=== PATIENT | male | born 2005 | race African-American/Black ===

== ENCOUNTER 2024-12-04 08:50 | Emergency (ER) | payer MEDICAID ==
[~2024-12-04] VITALS: Ht 185.4 cm; Wt 105.2 kg
[2024-12-04 09:01] VITALS: BP 158/89; PULSE 92; O2SAT 97
--- NOTE | 2024-12-04 09:06 | Physician Documentation ---
History of Present Illness ~ Chief Complaint: Hand pain Stated Complaint: R HAND INJURY Time Seen by MD: 09:04 [facility] 19-year-old male presents to the emergency department reporting that he punched something with his right hand about 30 minutes prior to arrival. He does note a history of a fracture of the thumb on this hand when he was 12 years old. Sensation intact to fingers. Obvious deformity dorsum right hand at base of 5th digit. He denies any other injuries. Medication Reconciliation Allergies: Coded Allergies: No Known Allergies (Unverified , 12/04/24) Review of Systems ROS As stated above in the HPI, otherwise all systems are reviewed and negative. Physical Exam Vital Signs: Temperature: 98.6, Source: Temporal, Heart Rate: 92, Respiratory Rate: 16, BP: 158/89, Pulse Oximetry: 97, Weight: 105.180 Oxygen Flow Rate: 0 Physical Exam General: Alert, no apparent distress. Neck: Full range of motion. Respiratory: Lungs clear, no respiratory distress. Chest: No accessory muscle use. Cardiovascular: Regular rate and rhythm, no murmurs. Gastrointestinal: Soft, nontender, nondistended. Bowels sounds present. Extremities: Reduced/painful ROM right hand with obvious deformity dorsum of hand at base of finger #5. Sensation intact to tips of fingers. Strong right radial pulse. Neurologic: Oriented x4. Psychiatric: Normal mood and affect. Skin: Normal color, warm and dry. No edema, no ecchymosis. Procedures Procedures 0925: Reduction right fifth metacarpal accomplished with forward traction on distal finger and downward/forward pressure on medial aspect. Patient tolerated well. Post-reduction film obtained showing good placement of right fifth metacarpal. Placed in velcro wrist splint. Progress Progress Note Plan of care coordinated in conjunction with JOSE Dotson and he was present for closed reduction. 0950: Post reduction film shows good alignment of right fifth metacarpal. However, an avulsion fracture is present on both pre-reduction and post- reduction films. Patient was placed in velcro wrist splint and the importance of seeing an orthopedist was stressed to him. He is to leave the velcro wrist brace in place at all times except for showering/washing hands. Results/Orders Results/Orders Orders - MALOU TELLES NP Hand, Complete (3vw Min) (12/04/24 09:05) Wrist, Complete (3vw Min) (12/04/24 09:05) Hand,Limited (Ap/Lat) (12/04/24 09:32) Ortho Orders (12/04/24 ) Completed Orders - MALOU TELLES NP Hand, Complete (3vw Min) (12/04/24 09:05) Wrist, Complete (3vw Min) (12/04/24 09:05) Hydrocodone/Apap 5/325mg Tab ([place] 5/32 (12/04/24 09:15) * Ice Extremity* (12/04/24 09:11) Hand,Limited (Ap/Lat) (12/04/24 09:32) Medications Received in ER Medications (Trade) Dose Ordered Sig/Farrukh Route PRN Reason Start Time Stop Time Status Last Admin Dose Admin ([place] 5/325mg tablet) 1 tab ONCE ONCE PO 12/04/24 09:15 12/04/24 09:16 DC 12/04/24 09:17 1 TAB Vital Signs 12/04/24 12/04/24 12/04/24 09:01 09:17 09:58 Temp 98.6 98.6 Pulse 92 Resp 16 15 B/P (MAP) 158/89 Pulse Ox 97 O2 Flow Rate 0 EKG/XRAY/CT/US/VASC/MRI Bone/Soft Tissue X-Ray (Spine) : Additional Comment DIAGNOSTIC RADIOLOGY Patient: MAYUR JOSE Medical Record: [id number] [facility] : 2005, Age: 19 Sex: Male Location: ER Patient Status: REG ER Service Date/Time: 12/04/24904 Ordering Physician: MALOU TELLES NP Exam: WRIST, COMPLETE (3VW MIN) Indication: WRIST PAIN Technique: 3 views right wrist, 3 views right hand Comparison: None FINDINGS/IMPRESSION: Fracture /dislocation of the carpal metacarpal bones by 11 mm on the lateral view. There is fracture fragment of the base of the metacarpal bone, likely at the base of the 5th metacarpal bone. Recommend CT of the right wrist /right hand to further characterize and evaluate which metacarpal bone is dislocated, felt to represent the 5th metacarpal bone dislocation of the carpometacarpal joints. Soft tissue edema along the ulnar aspect of the right hand. There also may be dislocation of the articulation between the carpal and 4th metacarpal bones as there is widening between the 3rd and 4th metacarpal bases. Recommend CT right wrist/ right hand to evaluate Electronically Signed by:CHER RIVERA MD Date & Time: 12/04/24957 Dictated by: CHER RIVERA MD Dictation date and time: 12/04/24924 Primary Care Provider: NO PRIMARY CARE PROVIDER cc: MALOU TELLES NP ~ Bone/Soft Tissue X-Ray (Ext.) : Additional Comment DIAGNOSTIC RADIOLOGY Patient: MAYUR JOSE Medical Record: [id number] [facility] : 2005, Age: 19 Sex: Male Location: ER Patient Status: [facility] ER Service Date/Time: 12/04/24931 Ordering Physician: MALOU TELLES NP Exam: HAND,LIMITED (AP/LAT) Indication: post reduction film Technique: 2 views right hand Comparison: Radiographs of the right wrist, right hand from today FINDINGS/IMPRESSION: Interval reduction of the dislocation of the carpal metacarpal joints with significantly improved alignment. 4 mm ossific fragment along the dorsal aspect of the carpal bones/metacarpal bases mass seen on the lateral view consistent with fracture fragment from unknown donor site, possibly the 5th metacarpal base. Electronically Signed by:CHER RIVERA MD Date & Time: 12/04/24 1012 Dictated by: CHER RIVERA MD Dictation date and time: 12/04/24 0948 Primary Care Provider: NO PRIMARY CARE PROVIDER cc: MALOU TELLES NP ~ Medical Decision Making Hand Diff Dx:Considerations: Include: Abrasion, Arthritis, Contusion, DJD, Fracture-carpal, Fracture-metacarpal, Fracture-phalynx, Fracture-radius, Hematoma, Neurovascular injury, Open fracture, Sprain Departure Time of Disposition: 09:33 Impression: Primary Impression: Closed dislocation of fifth metacarpal bone of right hand Additional Impression: Avulsion fracture of shaft of metacarpal bone Condition: Stable Discharge Instructions: Finger Fracture, Adult, Finger or Thumb Dislocation Additional Instructions: Ice, Ibuprofen per label instructions as needed for pain. See your primary care provider and request a referral to see orthopedics for followup. It's very important that you see ortho as you may have a ligamentous injury as well. Keep the wrist splint in place for two weeks other than to shower or wash your hands. Avoid further injury. Return if worse. Referrals: NO PRIMARY CARE PROVIDER (PCP) LAURA MCKEON Jr., MD Education Educated: Patient Educated regarding: diagnosis, treatment, prognosis, need for follow up Signature Scribe Signature: no scribe Attestation: The note accurately reflects work and decisions made by me.Malou Osman NP 12/04/24 09:14 MALOU TELLES NP Dec 04, 2024 09:06
[2024-12-04 09:17] VITALS: RESP 15
[2024-12-04] MEDS: HYDROcodone/acetaminophen 5mg/325mg tablet PO ONE (09:17)
[2024-12-04 09:58] VITALS: TEMP 98.6
--- NOTE | 2024-12-04 10:00 | RADIOLOGY REPORT ---
Indication: WRIST PAIN Technique: 3 views right wrist, 3 views right hand Comparison: None FINDINGS/IMPRESSION: Fracture /dislocation of the carpal metacarpal bones by 11 mm on the lateral view. There is fracture fragment of the base of the metacarpal bone, likely at the base of the 5th metacarpal bone. Recommend CT of the right wrist /right hand to further characterize and evaluate which metacarpal bone is disl ocated, felt to represent the 5th metacarpal bone dislocation of the carpometacarpal joints. Soft ti ssue edema along the ulnar aspect of the right hand. There also may be dislocation of the articulatio n between the carpal and 4th metacarpal bones as there is widening between the 3rd and 4th metacarpal bases. Recommend CT right wrist/ right hand to evaluate
--- NOTE | 2024-12-04 10:14 | RADIOLOGY REPORT ---
Indication: post reduction film Technique: 2 views right hand Comparison: Radiographs of the right wrist, right hand from today FINDINGS/IMPRESSION: Interval reduction of the dislocation of the carpal metacarpal joints with significantly improved ali gnment. 4 mm ossific fragment along the dorsal aspect of the carpal bones/metacarpal bases mass seen on the lateral view consistent with fracture fragment from unknown donor site, possibly the 5th metac arpal base.
== END 2024-12-04 10:01 | disposition home or self-care (01) ==
LOC: ER 08:52
DX: S62.326A Displaced fracture of shaft of fifth metacarpal bone, right hand, initial encounter for closed fracture (principal); X58.XXXA Exposure to other specified factors, initial encounter; Y93.89 Activity, other specified; Y92.89 Other specified places as the place of occurrence of the external cause; Y99.8 Other external cause status
CPT/HCPCS: 26770; 73110; 73120; 73130; 99284